=== PATIENT | female | born 1955 | race Caucasian/White ===

== ENCOUNTER 2024-06-03 15:34 | Emergency (ER) | payer OTHER ==
[2024-06-03] MEDS ORDERED: ACETAMINOPHEN 325 MG TABLET ONE (16:11)
[2024-06-03] MEDS ORDERED: TDAP (DIPHTH,PERTUSS(ACELL),TET VAC) 0.5 ML VIAL IMVAC ONE (16:11)
[2024-06-03] MEDS ORDERED: IBUPROFEN 400 MG TAB ONE (16:11)
[2024-06-03] MEDS ORDERED: IBUPROFEN 200 MG TAB PO ONE (16:11)
--- NOTE | 2024-06-03 16:58 | RAD REPORT ---
EXAM DESCRIPTION: RAD - Os Calcis (Calcaneus) Heel - 06/03/2024 4:46 pm CLINICAL HISTORY: Foot pain FINDINGS: 4 millimeter radiopaque density within plantar soft tissues hindfoot presumably glass. Thi s should be correlated clinically No fracture or dislocation
--- NOTE | 2024-06-03 17:28 | ER ---
Nurse's Notes [facility] Name: Ashley Jacobo Age: 68 yrs Sex: Female : 1955 Arrival Date: 06/03/2024 Time: 15:34 Bed 12 Private MD: Diagnosis: Puncture wound with foreign body, left foot, initial encounter;Cutaneous abscess of left foot Presentation: 06/03 15:41 Chief complaint: Patient states: stepped on a piece of glass about a week ago, left tm6 heel. Has not been able to get the piece of glass out. Coronavirus screen: Vaccine status: Patient reports being unvaccinated. Ebola Screen: Patient negative for fever greater than or equal to 101.5 degrees Fahrenheit, and additional compatible Ebola Virus Disease symptoms Patient denies exposure to infectious person. Patient denies travel to an Ebola-affected area in the 21 days before illness onset. No symptoms or risks identified at this time. Complicating Factors: Glass or an other foreign body is present in the wound. Initial Sepsis Screen: Does the patient meet any 2 criteria? No. Patient's initial sepsis screen is negative. Does the patient have a suspected source of infection? No. Patient's initial sepsis screen is negative. Risk Assessment: Do you want to hurt yourself or someone else? Patient reports no desire to harm self or others. Onset of symptoms was May 27, 2024. 15:41 Method Of Arrival: Ambulatory tm6 15:41 Acuity: DODIE 4 tm6 Triage Assessment: 15:43 General: Appears uncomfortable, Behavior is calm, cooperative. Pain: Complains of pain tm6 in heel of left foot Pain does not radiate. Pain currently is 9 out of 10 on a pain scale. Pain began one week ago. EENT: No signs and/or symptoms were reported regarding the EENT system. Neuro: Level of Consciousness is awake, alert, obeys commands, Oriented to person, place, time, situation. Cardiovascular: Patient's skin is warm and dry. Respiratory: Airway is patent Respiratory effort is even, unlabored, Respiratory pattern is regular, symmetrical. GI: No signs and/or symptoms were reported involving the gastrointestinal system. Abdomen is flat, non-distended. : No signs and/or symptoms were reported regarding the genitourinary system. Derm: Wound noted heel of left foot Reports pain that is 9 out of 10 on a pain scale. Musculoskeletal: Reports pain in heel of left foot since one week ago. Injury Description: Laceration sustained to heel of left foot was sustained one week is bleeding no active bleeding noted. Historical: - Allergies: 15:42 No Known Allergies; tm6 - PMHx: 15:42 TIA; Depressive disorder; tm6 15:43 ADHD; tm6 - PSHx: 15:42 hip replacement (TIA); tm6 - Immunization history:: Client reports having NOT received the Covid vaccine. - Infectious Disease History:: Denies. - Social history:: Smoking status: Patient denies any tobacco usage or history of. Patient uses alcohol, only on a social basis. Screenin:17 [facility] ED Fall Risk Assessment (Adult) History of falling in the last 3 months, ll1 including since admission No falls in past 3 months (0 pts) Confusion or Disorientation No (0 pts) Intoxicated or Sedated No (0 pts) Impaired Gait No (0 pts) Mobility Assist Device Used No (0 pt) Altered Elimination No (0 pt) Score/Fall Risk Level 0 - 2 = Low Risk Maintained a safe environment, Hourly rounding (assess needs \T\ fall precautionary measures) done. Abuse screen: Denies threats or abuse. Nutritional screening: No deficits noted. Tuberculosis screening: No symptoms or risk factors identified. Assessment: 17:22 General: Appears in no apparent distress. Behavior is calm, cooperative. Pain: tl4 Complains of pain in left foot. Neuro: Level of Consciousness is awake, alert, obeys commands, Oriented to person, place, time, situation, Moves all extremities. Full function Speech is normal. Cardiovascular: Capillary refill < 3 seconds Patient's skin is warm and dry. Respiratory: Airway is patent Respiratory effort is even, unlabored, Respiratory pattern is regular, symmetrical. GI: No signs and/or symptoms were reported involving the gastrointestinal system. : No signs and/or symptoms were reported regarding the genitourinary system. EENT: No signs and/or symptoms were reported regarding the EENT system. Derm: No signs and/or symptoms reported regarding the dermatologic system. Musculoskeletal: No signs and/or symptoms reported regarding the musculoskeletal system. Injury Description: Foreign body is located heel of left foot. 18:00 Injury Description: Laceration is clean, not bleeding. tl4 Vital Signs: 15:41 BP 129 / 67; Pulse 96; Resp 18; Temp 97.7(TE); Pulse Ox 100% on R/A; Weight 55.79 kg; tm6 Height 5 ft. 3 in. ; Pain 9/10; 17:42 BP 119 / 64; Pulse 88; Resp 16; Temp 97.6(O); Pulse Ox 99% on R/A; tl4 15:41 Body Mass Index 21.79 (55.79 kg, 160.02 cm) tm6 15:41 Pain Scale: Adult tm6 ED Course: 15:37 Patient arrived in ED. mr 15:42 Triage completed. tm6 15:43 Gino Simeon PA is PHCP. cp 15:43 Oziel Cleveland MD is Attending Physician. cp 15:43 Arm band placed on right wrist. tm6 16:17 Patient has correct armband on for positive identification. Bed in low position. ll1 Provided Education on: ER process and procedures. Cardiac monitoring not applicable on this patient. 16:35 Girish Bennett, HARINI is Primary Nurse. tl4 16:47 XRAY Heel Os Calcis (calcaneus) In Process Unspecified. EDMS 17:25 Wolf Dominguez MD is Referral Physician. cp 17:50 No provider procedures requiring assistance completed. Patient did not have IV access tl4 during this emergency room visit. Administered Medications: 16:16 Drug: Ibuprofen PO 600 mg PO once Route: PO; ll1 16:35 Follow up: Response: No adverse reaction; Pain is decreased tl4 16:16 Drug: Acetaminophen PO 650 mg PO once Route: PO; ll1 16:36 Follow up: Response: No adverse reaction; Pain is decreased tl4 16:16 Drug: Boostrix Tdap IM 0.5 ml IM once; as a single dose Route: IM; Site: left deltoid; ll1 16:35 Follow up: Response: No adverse reaction tl4 17:47 Drug: Doxycycline PO 100 mg PO once Route: PO; tl4 17:50 Follow up: Response: No adverse reaction; Medication Administered at Departure; tl4 Medication administered at discharge. 17:48 CANCELLED (Physician Discretion): lidocaine(1 %) 10 ml 5 ml Infiltration once; to tl4 bedside with epinephrine 17:48 Drug: Ciprofloxacin PO 500 mg PO once Route: PO; tl4 17:50 Follow up: Response: No adverse reaction; Medication Administered at Departure; tl4 Medication administered at discharge. Medication: 16:17 Vaccine Information Statement (VIS) provided today. Questions and/or concerns ll1 addressed. VIS edition date: May 11, 2021. Outcome: 17:27 Discharge ordered by . cp 17:50 Discharged to home ambulatory, tl4 17:50 Condition: stable 17:50 Discharge instructions given to patient, Instructed on discharge instructions, follow up and referral plans. medication usage, Demonstrated understanding of instructions, follow-up care, medications, Prescriptions given X 2, 18:02 Patient left the ED. tl4 Signatures: Dispatcher [employer] EDMS Delmy Hill, Reg Reg mr Gino Simeon, MARSHA PA Regi Briones, RN RN ll1 Gerry Mahan, RN RN tm6 Girish Bennett RN RN tl4
--- NOTE | 2024-06-03 17:28 | EDPHYS ---
Physician Documentation [facility] Name: Ashley Jacobo Age: 68 yrs Sex: Female : 1955 Arrival Date: 06/03/2024 Time: 15:34 Bed 12 Private MD: ED Physician Oziel Cleveland HPI: 06/03 16:00 This 68 yrs old Female presents to ER via Ambulatory with complaints of Laceration To cp Foot. 16:00 The patient presents with Patient is a 68-year-old female who presents to the emergency cp department with concern for piece of glass that has been embedded in the heel of her left foot for about the past week. Patient reports she stepped on a piece of glass and feels as though it remains in her left heel. She is attempted to remove it without success and has noticed some drainage from her heel. Historical: - Allergies: 15:42 No Known Allergies; tm6 - PMHx: 15:42 TIA; Depressive disorder; tm6 15:43 ADHD; tm6 - PSHx: 15:42 hip replacement (TIA); tm6 - Immunization history:: Client reports having NOT received the Covid vaccine. - Infectious Disease History:: Denies. - Social history:: Smoking status: Patient denies any tobacco usage or history of. Patient uses alcohol, only on a social basis. ROS: 16:05 MS/extremity: Positive for Pain and foreign body sensation of the left heel, cp 16:05 Eyes: Negative for injury, pain, redness, and discharge, cp 16:05 Constitutional: Negative for body aches, chills, fever, poor PO intake, 16:05 Cardiovascular: Negative for chest pain, 16:05 Respiratory: Negative for cough, shortness of breath, wheezing, 16:05 Abdomen/GI: Negative for abdominal pain, nausea, vomiting, and diarrhea, 16:05 All other systems are negative, Exam: 16:10 Constitutional: The patient appears in no acute distress, alert, awake, well developed, cp well nourished, 16:10 Head/Face: Normocephalic, atraumatic. cp 16:10 Chest/axilla: Inspection: normal, 16:10 Cardiovascular: Rate: normal, 16:10 Respiratory: the patient does not display signs of respiratory distress, Respirations: normal, no use of accessory muscles, 16:10 Abdomen/GI: Exam negative for discomfort, distension, guarding, Inspection: abdomen appears normal, 16:10 Back: pain, is absent, 16:10 Musculoskeletal/extremity: Extremities: noted in the plantar surface heel of left foot: Tenderness and pain to palpation, small area of fluctuance with the appearance of a small abscess noted. Mild erythema and mild swelling, Vital Signs: 15:41 BP 129 / 67; Pulse 96; Resp 18; Temp 97.7(TE); Pulse Ox 100% on R/A; Weight 55.79 kg; tm6 Height 5 ft. 3 in. ; Pain 9/10; 17:42 BP 119 / 64; Pulse 88; Resp 16; Temp 97.6(O); Pulse Ox 99% on R/A; tl4 15:41 Body Mass Index 21.79 (55.79 kg, 160.02 cm) tm6 15:41 Pain Scale: Adult tm6 MDM: 15:53 Patient medically screened. cp 17:27 Data reviewed: vital signs, nurses notes, radiologic studies, plain films. cp 17:27 Differential diagnosis: foreign body, cellulitis, abscess. Counseling: I had a detailed cp discussion with the patient and/or guardian regarding the historical points, exam findings, and any diagnostic results supporting the discharge/admit diagnosis, radiology results. ED course: Vital signs stable. Discussed results of x-rays of the left heel that showed concern for a small piece of glass embedded in the heel of the foot. Recommended I\T\D and attempt to remove the foreign body. Patient was concerned about the amount of discomfort associated with removal in the emergency department and so a consult was made with Dr. Dominguez who will be willing to see patient in clinic and schedule surgical removal. Patient is agreeable with this plan and will follow-up with Dr. Dominguez. 06/03 15:57 Order name: XRAY Heel Os Calcis (calcaneus) cp Administered Medications: 16:16 Drug: Ibuprofen PO 600 mg PO once Route: PO; ll1 16:35 Follow up: Response: No adverse reaction; Pain is decreased tl4 16:16 Drug: Acetaminophen PO 650 mg PO once Route: PO; ll1 16:36 Follow up: Response: No adverse reaction; Pain is decreased tl4 16:16 Drug: Boostrix Tdap IM 0.5 ml IM once; as a single dose Route: IM; Site: left deltoid; ll1 16:35 Follow up: Response: No adverse reaction tl4 17:47 Drug: Doxycycline PO 100 mg PO once Route: PO; tl4 17:50 Follow up: Response: No adverse reaction; Medication Administered at Departure; tl4 Medication administered at discharge. 17:48 CANCELLED (Physician Discretion): lidocaine(1 %) 10 ml 5 ml Infiltration once; to tl4 bedside with epinephrine 17:48 Drug: Ciprofloxacin PO 500 mg PO once Route: PO; tl4 17:50 Follow up: Response: No adverse reaction; Medication Administered at Departure; tl4 Medication administered at discharge. Disposition Summary: 06/03/24 17:27 Discharge Ordered Notes: Location: Home cp Problem: new cp Symptoms: have improved cp Condition: Stable cp Diagnosis - Puncture wound with foreign body, left foot, initial encounter cp - Cutaneous abscess of left foot cp Followup: cp - With: Wolf Dominguez MD - When: 1 - 2 days - Reason: Wound Recheck Discharge Instructions: - Discharge Summary Sheet cp - Skin Abscess cp - Puncture Wound cp - Hand or Foot Foreign Body, Adult cp Forms: - Medication Reconciliation Form cp - Antibiotic Education cp - Prescription Opioid Use cp - Patient Portal Instructions cp - Leadership Thank You Letter cp Prescriptions: - Cipro 500 mg Oral Tablet - take 1 tablet ORAL route every 12 hours for 10 days; 20 tablet; Refills: 0, cp Product Selection Permitted - Doxycycline Hyclate 100 mg Oral Tablet - take 1 tablet ORAL route every 12 hours; 20 tablet; Refills: 0, Product cp Selection Permitted Addendum: 06/08/2024 06:58 Co-signature as Attending Physician, Oziel Cleveland MD I reviewed the patient's care r n provided by the Advanced Practice Provider and agree with the diagnosis and treatment plan. Signatures: Dispatcher [employer] Oziel Shields MD MD rn Page, Corey, PA PA cp Regi Joseph RN RN ll1 Gerry Mahan RN RN tm6 Girish Bennett RN RN tl4 Corrections: (The following items were deleted from the chart) 06/03 17:48 16:47 I\T\D Setup ordered. cp tl4 17:48 16:47 Lidocaine Infiltration (1 %) 10 ml 5 ml Infiltration once; to bedside with tl4 epinephrine ordered. cp
[2024-06-03] MEDS ORDERED: DOXYCYCLINE 100 MG CAP PO ONE (17:34)
[2024-06-03] MEDS ORDERED: CIPROFLOXACIN HCL 500 MG TAB ONE (17:35)
[2024-06-03 18:09] VITALS: BP 119/64; TEMP 97.6; O2SAT 99
== END 2024-06-03 18:02 | disposition home or self-care (01) ==
LOC: ER 15:34
DX: S91.342A Puncture wound with foreign body, left foot, initial encounter (principal); L02.612 Cutaneous abscess of left foot
CPT/HCPCS: 73650; 96372; 99284

== ENCOUNTER 2024-06-11 10:10 | Day surgery (SDC) | payer OTHER ==
[2024-06-10 13:38] LABS: Absolute Eosinophils 0.3 K/uL (0-0.5); Absolute Lymphocytes (CBC) 1.6 K/uL (0.7-4.9); Absolute Monocytes 0.4 K/uL (0.1-1.3); Absolute Neutrophil 3.3 K/uL (1.8-8.0); Basophils % 0.8 % (0-1.3); Eosinophils % 4.9 % (0-4.4); Hematocrit 38.7 % (36.0-45.0); Hemoglobin 12.8 g/dL (12.0-15.0); MCH 33.4 pg (27.0-35.0); MCHC 33.1 g/dL (32.0-36.0); MCV 100.9 fL (80-100); MPV 7.2 fL (7.6-11.3); Monocytes % 7.5 % (3.3-12.3); Neutrophils % 58.8 % (41.7-73.7); Platelets 294 thou/uL (152-406); RBC Red Blood Cell Count 3.84 M/uL (3.86-4.86)
[2024-06-11] MEDS: Ringers Lactate 1,000 ML IV ONE (11:00)
[2024-06-11] MEDS: SCOPOLAMINE HYDROBROMIDE PATCH TD ONE (12:50)
[2024-06-11] MEDS ORDERED: LIDOCAINE 1% MPF 5 ML VIAL ONE (13:30)
[2024-06-11] MEDS ORDERED: MIDAZOLAM HCL 2 MG/2 ML INJ ONE (13:31)
[2024-06-11] MEDS ORDERED: propofoL 200 MG/20 ML VIAL IV ONE (13:31)
[2024-06-11] MEDS ORDERED: FENTANYL CITR 100 MCG/2 ML ONE (13:31)
--- NOTE | 2024-06-11 14:07 | EKG ---
Test Date: 2024-06-10 Test Time: 13:16:56 Accounts Receivable Bookkeeper: BERT MEASUREMENT RESULTS: Intervals: Rate: 84 TN: 152 QRSD: 86 QT: 356 QTc: 420 [place]: P: 79 TN: 152 QRS: 83 T: 75 INTERPRETIVE STATEMENTS: Normal sinus rhythm Normal ECG Compared to ECG 10/24/2017 17:27:44 Sinus tachycardia no longer present T-wave abnormality no longer present Electronically Signed On 06-11-24 14:06:16 CDT by Farooq Marks
[2024-06-11] MEDS: CEFAZOLIN SODIUM 2 GM/VIAL ONE (14:08)
[2024-06-11] MEDS ORDERED: ONDANSETRON 4 MG/2 ML VIAL ONE (14:10)
[2024-06-11] MEDS ORDERED: dexAMETHasone 10 MG/ML VIAL ONE (14:10)
[2024-06-11] MEDS: LIDOCAINE HCL/EPINEPHRINE 20 ML MDV ONE (14:22)
--- NOTE | 2024-06-11 14:48 | P.OP ---
Preoperative diagnosis: LEFT Foot Foreign Bodies Postoperative diagnosis: LEFT Foot Foreign Bodies Primary procedure: Wide Excision of LEFT Foot Foreign Bodies Anesthesia: GETA + Local Estimated blood loss: <2cc Specimen: LEFT Foot Foreign Bodies x 2 Findings: Gritty material in plantar fascia anteriorly and in heel fascia Transferred to: Recovery Room Condition: Good
[2024-06-11 16:36] VITALS: BP 119/74; TEMP 96.5; O2SAT 98
--- NOTE | 2024-06-12 01:17 | OP ---
Date of Procedure: 06/11/2024 Surgeon: Wolf Dominguez MD, Preoperative Diagnosis: Left foot foreign body. Postoperative Diagnosis: Left foot foreign body. Procedure Performed: Wide excision of left foot foreign bodies x2. Anesthesia: General endotracheal plus local 1% lidocaine with epinephrine. Estimated Blood Loss: Less than 2 cc. Specimen: Left foot foreign bodies x2. Findings: Gritty-type material in the plantar fascia in both the anterior small punctate area of ope jarred as well as the posterior heel area. Disposition: The patient was transferred to recovery room in good condition. Procedure In Detail: After informed consent was obtained, the patient was brought to the operating r oom, prepped and draped in usual sterile fashion. After adequate anesthesia was achieved, I anesthet ized an area of the left foot, where a small punctate opening was on the plantar fascia between the s econd and third toes along the plantar fascia in the metatarsal space. There was a small punctate op ening consistent with her history of having stepped on broken glass. I made a small approximately 1 cm circumferential dissection through the skin and followed this in a cylindrical type orientation do wn to the plantar fascia. I removed this and felt somewhat gritty-type material inside this plantar fascia that was removed. I then palpated the remaining area and irrigated it copiously. No addition al residual foreign bodies were palpated at this point. I then irrigated the area once again and emmett sed, and reapproximated this anterior foreign body cavity with interrupted 2-0 nylon sutures and plac ed a sterile dressing over top. I then turned my attention to the heel area, where somewhat larger a kayce of approximately 1.5 cm x 1 cm area of multiple small skin healing/breaks were appreciated. As I palpated this area, the skin was quite dense and thickened consistent with an eschar. The patient a lso had a history of stepping on a broken glass at the same time at this particular area, and gave he r particular areas of pain. She also had a history of radiopaque foreign bodies on imaging in the ct st. I took an elliptical incision down for approximately 1.5 to 1.75 cm circumferentially around by a 1.5 cm ellipse of skin with a 15 blade down into the heel plantar fascia, ultimately removing this and also palpating an area of what was like granular tissue consistent with a foreign body reaction i n this area. I sent this off for pathologic examination en bloc. I then palpated the remaining area . No additional sharp objects were appreciated or gritty-type material. Only healthy viable plantar fascia was left behind. I used almost no electrocautery in this area, and the wound was packed. As it was under tension and unable to be closed at this point, the wound was packed with Vashe-soaked g auze and a sterile dressing was placed over top. The patient tolerated procedure without incident or complication. Transferred to PACU in good condition. All counts were correct at the end of the carrie e. HIRA/STEPHANI Voice ID: [id number] Report ID: [id number]
== END 2024-06-11 16:25 | disposition home or self-care (01) ==
LOC: OR 10:10
PROVIDERS: ATTEND Surgery
PROC: 0JCR0ZZ Extirpation of Matter from Left Foot Subcutaneous Tissue and Fascia, Open Approach (ICD-10-PCS; principal; 2024-06-11 12:30)
DX: M79.5 Residual foreign body in soft tissue (principal)
CPT/HCPCS: 93005; 85025; 80048; 36415; 28190; J2704; J2001; J2250; J3010; J1100; J2405; J7120; 88304